=== PATIENT | male | born 1945 | race Caucasian/White ===

== ENCOUNTER 2021-04-22 16:03 | Inpatient (IN) | payer OTHER ==
[~2021-04-22] VITALS: Ht 182.9 cm; Wt 82.6 kg
--- NOTE | 2021-04-22 16:03 | NUR ---
PT IV LINE ESTABLISHED BLOOD DRAWN AND SENT TO LAB.
--- NOTE | 2021-04-22 16:03 | NUR ---
PT BIBRA 84 FROM HOME C/O ALTERED MENTAL STATUS LAST KNOWN WELL WAS THURSDAY. PT IS AAOX2, NOT IN RESPIRATORY DISTRESS, HOOKED TO RUSSET REPAIRER, KEPT RESTED AND COMFORTABLE. WILL CONTINUE TO MONITOR.
--- NOTE | 2021-04-22 16:09 | NUR ---
AT BEDSIDE FOR EVAL.
[2021-04-22] MEDS ORDERED: IV NS 0.9% 500 ML BAG IV ONE (16:30)
--- NOTE | 2021-04-22 16:30 | NUR ---
covid swab done and sent to the lab
[2021-04-22 16:34] LABS: BASOPHILS # (AUTO) 0.1 K/uL (0.0-0.2); BASOPHILS % (AUTO) 0.3 % (0.0-2.0); EOSINOPHILS % (AUTO) 0.4 % (0.0-6.0); HEMATOCRIT 43 % (39-51); HEMOGLOBIN 14.1 g/dL (13.5-17.5); LYMPHOCYTES # (AUTO) 1.8 K/uL (0.8-4.8); LYMPHOCYTES % (AUTO) 11.2 % (20.0-44.0); MEAN CORPUSCULAR HGB CONC 33 g/dl (31.0-36.0); MEAN CORPUSCULAR VOLUME 95 fL (80-96); MONOCYTES # (AUTO) 1.6 K/uL (0.1-1.30); MONOCYTES % (AUTO) 9.8 % (2.0-12.0); NEUTROPHILS # (AUTO) 12.4 K/uL (1.8-8.9); NEUTROPHILS % (AUTO) 78.3 % (43.0-81.0); PLATELET COUNT (AUTO) 277 K/uL (150-450); RED BLOOD CELL COUNT(AUTO) 4.55 MIL/uL (4.5-6.0); WHITE BLOOD COUNT (AUTO) 15.9 K/uL (4.3-11.0)
[2021-04-22 17:14] LABS: ALANINE AMINOTRANSFERASE 123 U/L (12-78); ALBUMIN 3.7 g/dL (3.4-5.0); ALKALINE PHOSPHATASE 85 U/L (46-116); ASPARTATE AMINOTRANSFERASE 229 U/L (15-37); BILIRUBIN,DIRECT 0.3 mg/dL (0.0-0.2); BILIRUBIN,TOTAL 1.2 mg/dL (0.2-1.0); CALCIUM, SERUM 8.9 mg/dL (8.5-10.1); CARBON DIOXIDE 26 mmol/L (21-32); CHLORIDE 95 mmol/L (98-107); CREATININE 4.2 mg/dL (0.6-1.3); GLUCOSE 120 mg/dL (74-106); POTASSIUM 3.5 mmol/L (3.5-5.1); SODIUM SERUM 134 mmol/L (136-145); TOTAL PROTEIN, SERUM 7.3 g/dL (6.4-8.2)
[2021-04-22 17:15] LABS: UREA NITROGEN, BLOOD 88 mg/dL (7-18)
[2021-04-22] MEDS ORDERED: IV NS 0.9% 1,000 ML BAG IV ONE (17:30)
[2021-04-22] MEDS ORDERED: CEFEPIME 1 GM in IV D5W 50 ML IV ONE (17:30)
[2021-04-22] MEDS ORDERED: VANCOMYCIN 1 GM in IV D5W 250 ML IV ONE (17:30)
[2021-04-22] MEDS ORDERED: Z GUARD REMEDY 2 OZ OINT TP PRN (18:30)
[2021-04-22] MEDS ORDERED: ACETAMINOPHEN 325 MG TABLET PO PRN (18:30)
[2021-04-22] MEDS ORDERED: ONDANSETRON HCL/PF 4 MG/2 ML VIAL IVP PRN (18:30)
[2021-04-22] MEDS ORDERED: IV NS 0.9% 1,000 ML IV PRN (18:30)
--- NOTE | 2021-04-22 18:58 | NUR ---
NURSING SUP GAVE TELE BED 308-1. PLEASE CALL AFTER SHIFT CHANGE FOR REPORT.
--- NOTE | 2021-04-22 19:26 | NUR ---
RERORT GIVEN TO NURSE HOLDER
[2021-04-22] MEDS ORDERED: CEFTRIAXONE 1 G in IV D5W 50 ML IV SCH (20:00)
[2021-04-22 20:11] LABS: CHOLESTEROL 121 mg/dL (<200); HDL CHOLESTEROL 31 mg/dL (40-60); LDL 65 mg/dL (0-99); TRIGLYCERIDES 169 mg/dL (30-150)
[2021-04-22] MEDS ORDERED: CEFTRIAXONE 1GM BAG (ER ONLY) 50 ML IV ONE (20:17)
[2021-04-22] MEDS ORDERED: ACETAMINOPHEN 325 MG TABLET ONE (20:18)
--- NOTE | 2021-04-22 20:27 | NUR ---
DIRECTIONAL DRILL OPERATOR AT BEDSIDE
--- NOTE | 2021-04-22 20:35 | NUR ---
AWAITING CALL BACK FROM 3W TO GIVE REPORT
--- NOTE | 2021-04-22 22:17 | NUR ---
INSERTED F/C 16 FR
--- NOTE | 2021-04-22 22:23 | NUR ---
REPORT GIVEN TO CHEYENNE 3W FOR STEPHANIE
--- NOTE | 2021-04-22 22:50 | NUR ---
PT TRANSFERRED TO ROOM 308-2 VIA ACLS PROTOCOL
[2021-04-22] MEDS ORDERED: hydrALAZINE HCL IV 20 MG VIAL IV PRN (23:30)
[2021-04-22] MEDS ORDERED: LABETALOL 20 MG/4 ML VIAL IV PRN (23:30)
--- NOTE | 2021-04-22 23:40 | NUR ---
RN ADMITTING NOTES PT ARRIVED TO UNIT AT 2330 ACCOMPANIED BY RN AND EMT. PT A/O X 3 WITH SOME FORGETFULNESS. PT IS IS A TELE PT 75 YEAR OLD MALE. PT UNABLE TO RECALL ANY ALLERGIES AT THIS TIME. PT ADMITTING DX IS ACUTE METABOLIC ENCEPHALOPATHY. IV SITE ON THE RIGHT WRIST 18 G LAC 18G PATENT SALINE FLUSHED. PT HAS PAIN AT THIS TIME LOWER ABDOMINAL STATED" I FEEL LIKE I NEED TO PEE BUT I CANT" RN NOTED NO OUTPUT IN THE PALENCIA CATH CATH REINSERTED PT IS NOW HAVING OUTPUT PT IN RELIEVED. NO RESPIRATORY DISTRESS ON ROOM AIR TOLERATING WELL. PTS ONLY PASS MEDICATION HISTORY RECALLED IS DIABETES PT DOES NOT REMEMBER NAME OF MEDICATION HE TAKES AT HOME. PT STATED HE LIVES AT HOME WITH GIRLFRIEND. PT NOTED WITH SCABS ON HIS BODY PHOTOS TAKEN. BED ALARM ON AT THIS ITME. PT INSTRUCTED TO USE CALLIGHT FOR ASSISTANCE PLACED WITHIN REACH. HOB ELEVATED. BILATERAL SIDE RAILS UP WILL OCNTINUE TO MONITOR.
[2021-04-23] VITALS: BP 142/86
[2021-04-23] MEDS ORDERED: DEXTROSE 50%-WATER 50 ML DISP.SYRIN IV PRN ×2 (02:00→13:30)
[2021-04-23] MEDS ORDERED: INSULIN REGULAR, HUMAN 100 UNIT/ML 3 ML VIAL SQ PRN (02:00)
[2021-04-23] MEDS: BLOOD SUGAR DIAGNOSTIC 1 EACH STRIP IN SCH ×3 (02:17→13:02)
[2021-04-23 04:00] VITALS: BP_SYST 159; BP_DIAS 66; BP_DIAS 99
[2021-04-23 05:29] LABS: BILIRUBIN,URINE NEGATIVE (NEGATIVE); COLOR,URINE RED (YELLOW); LEUKOCYTE ESTERASE ,URINE NEGATIVE (NEGATIVE); NITRITE, URINE NEGATIVE (NEGATIVE); PROTEIN,URINE TRACE mg/dl (NEGATIVE); UGLUCOSE NEGATIVE (NEGATIVE); UROBILINOGEN,URINE 0.2 EU/dL (0.2)
[2021-04-23 05:47] LABS: CREATININE, URINE 16.8 MG/DL (30.0-125.0)
[2021-04-23 06:11] LABS: BACTERIA,URINE Few /HPF (None Seen); RBC,URINE 51-80 /HPF (0-2); SQUAMOUS EPITHELIAL CELL,UR Few /HPF (None Seen)
[2021-04-23 06:29] LABS: BASOPHILS % (AUTO) 0.1 % (0.0-2.0); EOSINOPHILS % (AUTO) 0.8 % (0.0-6.0); HEMATOCRIT 38 % (39-51); HEMOGLOBIN 12.9 g/dL (13.5-17.5); LYMPHOCYTES # (AUTO) 0.8 K/uL (0.8-4.8); LYMPHOCYTES % (AUTO) 8.5 % (20.0-44.0); MEAN CORPUSCULAR HGB CONC 34 g/dl (31.0-36.0); MEAN CORPUSCULAR VOLUME 94 fL (80-96); MONOCYTES # (AUTO) 0.8 K/uL (0.1-1.30); MONOCYTES % (AUTO) 8.8 % (2.0-12.0); NEUTROPHILS # (AUTO) 7.7 K/uL (1.8-8.9); NEUTROPHILS % (AUTO) 81.8 % (43.0-81.0); PLATELET COUNT (AUTO) 217 K/uL (150-450); RED BLOOD CELL COUNT(AUTO) 4.09 MIL/uL (4.5-6.0); WHITE BLOOD COUNT (AUTO) 9.4 K/uL (4.3-11.0)
--- NOTE | 2021-04-23 06:46 | NUR ---
CLOSING RN NOTES PT A/O X 3 WITH SOME FORGETFULNESS. PT IS IS A TELE IV SITE ON THE RIGHT WRIST 18 G LAC 18G PATENT SALINE FLUSHED. NO RESPIRATORY DISTRESS ON ROOM AIR TOLERATING WELL. . PT INSTRUCTED TO USE CALL LIGHT FOR ASSISTANCE PLACED WITHIN REACH. HOB ELEVATED. BILATERAL SIDE RAILS UP WILL ENDORSE CARE TO DAY SHIFT NURSE.
[2021-04-23 07:11] LABS: ALANINE AMINOTRANSFERASE 108 U/L (12-78); ALKALINE PHOSPHATASE 70 U/L (46-116); ASPARTATE AMINOTRANSFERASE 173 U/L (15-37); BILIRUBIN,TOTAL 0.8 mg/dL (0.2-1.0); CALCIUM, SERUM 7.6 mg/dL (8.5-10.1); CARBON DIOXIDE 23 mmol/L (21-32); CHLORIDE 107 mmol/L (98-107); CREATININE 2.7 mg/dL (0.6-1.3); GLUCOSE 104 mg/dL (74-106); MAGNESIUM 2.4 mg/dL (1.8-2.4); PHOSPHORUS 3.4 mg/dL (2.5-4.9); POTASSIUM 2.9 mmol/L (3.5-5.1); SODIUM SERUM 143 mmol/L (136-145); TOTAL PROTEIN, SERUM 6.1 g/dL (6.4-8.2); UREA NITROGEN, BLOOD 63 mg/dL (7-18)
--- NOTE | 2021-04-23 07:15 | NUR ---
HOTEL OPERATION MANAGER OPENING NOTES RECEIVED PATIENT A/O X 2-3 BUT FORGETFUL. PATIENT ON ROOM AIR WITH OXYGEN SATURATION AT 96%. PATIENT WITH IV ACCESS ON RIGHT AC G18 AND LEFT WRIST G18 WITH ONGOING NS AT 75ML/HR. PATIENT WITH RIB FRACTURES. MONITORED FOR PAIN MANAGEMENT. NO COMPLAINT AT THIS TIME. WITH PALENCIA CATHETER TO URINE BAG, WITH LIGHT YELLOW OUTPUT. SAFETY MEASURES ENSURED WITH BED ON LOWEST AND LOCKED POSITION. SIDE RAILS UP FOR SAFETY. CALL LIGHT AND TABLE WITHIN REACH AT ALL TIMES. WILL CONTINUE TO MONITOR PATIENT.
[2021-04-23 08:00] VITALS: BP 166/86
[2021-04-23 08:07] LABS: POTASSIUM 3.1 mmol/L (3.5-5.1)
--- NOTE | 2021-04-23 08:20 | NUR ---
DENTAL AMALGAM PROCESSOR NOTE PATIENT SEEN BY DR. LEAVITT WITH ORDERS READ BACK AND VERIFIED. WILL CONTINUE TO MONITOR PATIENT.
[2021-04-23] MEDS ORDERED: HYDROCODONE/APAP 5/325MG TABLET PO PRN (09:30)
[2021-04-23] MEDS ORDERED: BISA5TAB10 PO (10:45)
[2021-04-23] MEDS ORDERED: GABA-532 PO (10:45)
[2021-04-23] MEDS ORDERED: ACET-2605 PO (10:45)
[2021-04-23] MEDS ORDERED: MAG30ORA PO (10:45)
[2021-04-23] MEDS ORDERED: TRAZ-182 PO (10:45)
[2021-04-23] MEDS ORDERED: ATOR10TA PO (10:45)
[2021-04-23] MEDS ORDERED: ERGO500093 PO (10:45)
[2021-04-23] MEDS ORDERED: OMEP40CA21 PO (10:45)
[2021-04-23] MEDS ORDERED: LOSA100T31 PO (10:45)
[2021-04-23] MEDS ORDERED: PARO10TA86 PO (10:45)
[2021-04-23] MEDS ORDERED: BENA20TA9 PO (10:45)
[2021-04-23] MEDS ORDERED: LEVO25TA9 PO (10:45)
[2021-04-23] MEDS ORDERED: OLOP2.5D12 EACHEYE (10:45)
[2021-04-23] MEDS ORDERED: CLON0.2T PO (10:45)
[2021-04-23] MEDS ORDERED: AMLO-212 PO (10:45)
[2021-04-23] MEDS ORDERED: CYAN-51 PO (10:45)
[2021-04-23] MEDS ORDERED: ALEN70TA3 PO (10:45)
[2021-04-23] MEDS ORDERED: SUCR1TAB31 PO (10:45)
[2021-04-23] MEDS ORDERED: DONE5TAB34 PO (10:45)
[2021-04-23] MEDS ORDERED: METF-440 PO (10:48)
[2021-04-23] MEDS ORDERED: ALLO300T2 PO (10:48)
[2021-04-23] MEDS: IV NS 0.9% 1,000 ML IV PRN ×2 (11:26→21:34)
[2021-04-23] MEDS: HYDROCODONE/APAP 5/325MG TABLET PO PRN ×4 (11:28→21:45)
[2021-04-23 12:00] VITALS: BP 166/96
[2021-04-23] MEDS: POTASSIUM CL. PREMIX PERIPHER. 50 ML IV SCH ×2 (13:08→14:17)
[2021-04-23] MEDS ORDERED: PIPERACILLIN /TAZOBACTAM 2.25 G in IV D5W 50 ML IV SCH (13:30)
[2021-04-23] MEDS ORDERED: *INSULIN REGULAR(HUMULIN R)HUM 100 UNIT/ML VIAL SQ PRN (13:30)
[2021-04-23] MEDS: AMLODIPINE BESYLATE 5 MG TABLET PO SCH (14:16)
[2021-04-23] MEDS: CEFEPIME 1 GM in IV D5W 50 ML IV SCH (15:07)
[2021-04-23 16:00] VITALS: BP 164/84
[2021-04-23] MEDS: BLOOD SUGAR DIAGNOSTIC 1 EACH STRIP VI SCH ×2 (17:06→21:41)
--- NOTE | 2021-04-23 19:00 | NUR ---
received in bed hinds draing speech clear good eye contact c/o of left side and back pain iv infusing
--- NOTE | 2021-04-23 19:00 | NUR ---
FUNERAL PRE ARRANGEMENT COUNSELOR CLOSING NOTES PATIENT A/O X 2-3 BUT FORGETFUL. PATIENT ON ROOM AIR WITH OXYGEN SATURATION AT 96%. PATIENT WITH IV ACCESS ON RIGHT AC G18 AND LEFT WRIST G18 WITH ONGOING NS AT 75ML/HR. PATIENT WITH RIB FRACTURES. MONITORED FOR PAIN MANAGEMENT. NO COMPLAINT AT THIS TIME. WITH PALENCIA CATHETER TO URINE BAG, WITH LIGHT YELLOW OUTPUT. SAFETY MEASURES ENSURED WITH BED ON LOWEST AND LOCKED POSITION. SIDE RAILS UP FOR SAFETY. CALL LIGHT AND TABLE WITHIN REACH AT ALL TIMES. ENDORSED PATIENT TO NEXT SHIFT FOR CONTINUITY OF CARE.
[2021-04-23 20:54] VITALS: BP 165/95
[2021-04-23] MEDS: INSULIN REGULAR, HUMAN 100 UNIT/ML 3 ML VIAL SQ PRN (21:49)
[2021-04-24] MEDS: CEFEPIME 1 GM in IV D5W 50 ML IV SCH ×2 (02:13→15:50)
[2021-04-24] MEDS: HYDROCODONE/APAP 5/325MG TABLET PO PRN ×2 (03:25→16:27)
[2021-04-24 04:00] VITALS: BP 168/95
--- NOTE | 2021-04-24 04:50 | NUR ---
Closing Notes: medicated X2 with Nelson tablets for left sided pain. 1 tablet not effective for the pain relief. good about turning and being reposition noted he becomes frustrated when he forgets what he wanted to ask. vital signs stable this 12 hours.
[2021-04-24] MEDS: BLOOD SUGAR DIAGNOSTIC 1 EACH STRIP VI SCH ×3 (06:19→17:02)
[2021-04-24] MEDS: IV NS 0.9% 1,000 ML IV PRN (06:21)
[2021-04-24] MEDS: INSULIN REGULAR, HUMAN 100 UNIT/ML 3 ML VIAL SQ PRN (06:25)
[2021-04-24 06:48] LABS: BASOPHILS % (AUTO) 0.1 % (0.0-2.0); EOSINOPHILS % (AUTO) 1.1 % (0.0-6.0); HEMATOCRIT 37 % (39-51); HEMOGLOBIN 12.6 g/dL (13.5-17.5); LYMPHOCYTES # (AUTO) 1.3 K/uL (0.8-4.8); LYMPHOCYTES % (AUTO) 10.2 % (20.0-44.0); MEAN CORPUSCULAR HGB CONC 34 g/dl (31.0-36.0); MEAN CORPUSCULAR VOLUME 93 fL (80-96); NEUTROPHILS % (AUTO) 80.6 % (43.0-81.0); PLATELET COUNT (AUTO) 240 K/uL (150-450); RED BLOOD CELL COUNT(AUTO) 4.01 MIL/uL (4.5-6.0); WHITE BLOOD COUNT (AUTO) 12.5 K/uL (4.3-11.0)
[2021-04-24 06:55] LABS: ALANINE AMINOTRANSFERASE 103 U/L (12-78); ALBUMIN 2.9 g/dL (3.4-5.0); ALKALINE PHOSPHATASE 70 U/L (46-116); ASPARTATE AMINOTRANSFERASE 109 U/L (15-37); BILIRUBIN,DIRECT 0.2 mg/dL (0.0-0.2); BILIRUBIN,TOTAL 0.7 mg/dL (0.2-1.0); CARBON DIOXIDE 26 mmol/L (21-32); CHLORIDE 105 mmol/L (98-107); CREATININE 1.7 mg/dL (0.6-1.3); GLUCOSE 131 mg/dL (74-106); POTASSIUM 3.2 mmol/L (3.5-5.1); SODIUM SERUM 142 mmol/L (136-145); TOTAL PROTEIN, SERUM 5.9 g/dL (6.4-8.2); UREA NITROGEN, BLOOD 38 mg/dL (7-18)
[2021-04-24 07:15] LABS: CREATINE KINASE, TOTAL 2319 U/L (39-308)
[2021-04-24 08:00] VITALS: BP 141/87
[2021-04-24] MEDS: AMLODIPINE BESYLATE 5 MG TABLET PO SCH (09:41)
[2021-04-24] MEDS: POTASSIUM CHLORIDE 20 MEQ TAB.PRT.SR PO SCH ×3 (12:05→13:51)
[2021-04-24] MEDS ORDERED: LEVO500T90 PO (12:09)
[2021-04-24] MEDS ORDERED: POTASSIUM CHLORIDE 20 MEQ TAB.PRT.SR PO ONE (12:30)
--- NOTE | 2021-04-24 13:32 | NUR ---
MED HELD INSULIN. BS 132. PT REFUSED LUNCH
[2021-04-24 17:00] VITALS: BP 163/100
[2021-04-24] MEDS ORDERED: LABETALOL HCL IV 100MG VIAL IV PRN (18:00)
--- NOTE | 2021-04-24 19:10 | NUR ---
PT TRANSFERRED TO SNF DISCHARGE INSTRUCTIONS GIVEN ORDERED. ALL QUESTIONS AND CONCERNS ADDRESSED. PATIENT VERBALIZED UNDERSTANDING. IV REMOVED WITH CATHETER INTACT, PRESSURE DRESSING APPLIED. PALENCIA CATHETER REMOVED. MEDICATION RECONCILIATION FORM COMPLETED. COPY GIVEN TO PATIENT. REPORT GIVEN TO BRITTANY AT 4 SEASONS. PATIENT TRANSPORTED WITH ALL PERSONAL BELONGINGS BY AMBULANCE. NO DISTRESS NOTED. AT TIME OF DEPARTURE.
== END 2021-04-24 19:20 | DRG 682 ==
LOC: ER 16:08 → TELE 19:20 → MED 04-24 12:37
PROVIDERS: ADMIT Internal Medicine; ATTEND Internal Medicine
DX: N17.0 Acute kidney failure with tubular necrosis (principal); J69.0 Pneumonitis due to inhalation of food and vomit; I21.A1 Myocardial infarction type 2; G93.41 Metabolic encephalopathy; S22.42XA Multiple fractures of ribs, left side, initial encounter for closed fracture; E87.1 Hypo-osmolality and hyponatremia; E44.1 Mild protein-calorie malnutrition; M62.82 Rhabdomyolysis; I12.9 Hypertensive chronic kidney disease with stage 1 through stage 4 chronic kidney disease, or unspecified chronic kidney disease; N18.9 Chronic kidney disease, unspecified; E03.9 Hypothyroidism, unspecified; E86.0 Dehydration; E86.1 Hypovolemia; E87.6 Hypokalemia; E11.22 Type 2 diabetes mellitus with diabetic chronic kidney disease; F03.90 Unspecified dementia, unspecified severity, without behavioral disturbance, psychotic disturbance, mood disturbance, and anxiety; N40.0 Benign prostatic hyperplasia without lower urinary tract symptoms; W19.XXXA Unspecified fall, initial encounter; R74.01 Elevation of levels of liver transaminase levels; X58.XXXA Exposure to other specified factors, initial encounter; Y93.9 Activity, unspecified; Y92.009 Unspecified place in unspecified non-institutional (private) residence as the place of occurrence of the external cause; Z20.822 Contact with and (suspected) exposure to COVID-19; E88.09 Other disorders of plasma-protein metabolism, not elsewhere classified; Z68.24 Body mass index [BMI] 24.0-24.9, adult; Z79.84 Long term (current) use of oral hypoglycemic drugs
CPT/HCPCS: 36415; 70450-TC; 71045-TC; 71250-TC; 80048-TC; 80053-TC; 80061-TC; 80076-TC; 81001; 82550-TC; 82553; 82570-TC; 82962-TC; 83605-TC; 83735-TC; 84100-TC; 84132-TC; 84300-TC; 84484-TC; 85025-TC; 85730-TC; 87040-TC; 87081-TC; 87086-TC; 93307-TC; 93880-TC; C9803; G0378; J0360; J0692; J0696; J1815; J3370; J3480; J3490; J7030; J7040; J7060

== ENCOUNTER 2021-05-06 16:12 | Emergency (ER) | payer MEDICARE, OTHER ==
[~2021-05-06] VITALS: Ht 182.9 cm; Wt 81.6 kg
[~2021-05-06 16:12] MED LIST: ACET-2605 PO; ALEN70TA3 PO; ALLO300T2 PO; AMLO-212 PO; ATOR10TA PO; BISA5TAB10 PO; CLON0.2T PO; CYAN-51 PO; DONE5TAB34 PO; ERGO500093 PO; GABA-532 PO; LEVO25TA9 PO; LEVO500T90 PO; MAG30ORA PO; METF-440 PO; OLOP2.5D12 EACHEYE; OMEP40CA21 PO; PARO10TA86 PO; SUCR1TAB31 PO; TRAZ-182 PO
[2021-05-06 16:59] LABS: BASOPHILS # (AUTO) 0.1 K/uL (0.0-0.2); BASOPHILS % (AUTO) 0.6 % (0.0-2.0); EOSINOPHILS % (AUTO) 1.2 % (0.0-6.0); HEMATOCRIT 40 % (39-51); LYMPHOCYTES # (AUTO) 1.5 K/uL (0.8-4.8); MEAN CORPUSCULAR HGB CONC 33 g/dl (31.0-36.0); MEAN CORPUSCULAR VOLUME 95 fL (80-96); MONOCYTES # (AUTO) 0.8 K/uL (0.1-1.30); MONOCYTES % (AUTO) 6.7 % (2.0-12.0); NEUTROPHILS # (AUTO) 8.7 K/uL (1.8-8.9); NEUTROPHILS % (AUTO) 78.5 % (43.0-81.0); PLATELET COUNT (AUTO) 349 K/uL (150-450); RED BLOOD CELL COUNT(AUTO) 4.24 MIL/uL (4.5-6.0); WHITE BLOOD COUNT (AUTO) 11.2 K/uL (4.3-11.0)
[2021-05-06 17:21] LABS: CALCIUM, SERUM 9.3 mg/dL (8.5-10.1); CARBON DIOXIDE 30 mmol/L (21-32); CHLORIDE 106 mmol/L (98-107); CREATININE 1.5 mg/dL (0.6-1.3); GLUCOSE 131 mg/dL (74-106); POTASSIUM 4.2 mmol/L (3.5-5.1); SODIUM SERUM 143 mmol/L (136-145); UREA NITROGEN, BLOOD 18 mg/dL (7-18)
[2021-05-06 17:35] LABS: ALANINE AMINOTRANSFERASE 47 U/L (12-78); ALBUMIN 3.3 g/dL (3.4-5.0); ALCOHOL, BLOOD < 3 mg/dL (0-0); ALKALINE PHOSPHATASE 129 U/L (46-116); ASPARTATE AMINOTRANSFERASE 27 U/L (15-37); BILIRUBIN,DIRECT 0.1 mg/dL (0.0-0.2); BILIRUBIN,TOTAL 0.3 mg/dL (0.2-1.0); TOTAL PROTEIN, SERUM 6.8 g/dL (6.4-8.2)
[2021-05-06] MEDS ORDERED: AZITHROMYCIN 250 MG TABLET PO ONE (18:30)
[2021-05-06] MEDS ORDERED: CEFTRIAXONE 1GM BAG (ER ONLY) 1 GM/50 ML PIGGYBACK IV ONE (18:30)
[2021-05-06 18:58] LABS: THYROID STIMULATING HORMONE 1.491 uIU/mL (0.358-3.74)
[2021-05-06] MEDS ORDERED: AZITHROMYCIN 250 MG TABLET ONE (18:58)
[2021-05-06] MEDS ORDERED: CEFTRIAXONE 1GM BAG (ER ONLY) 50 ML IV ONE (18:58)
--- NOTE | 2021-05-06 19:05 | NUR ---
Pt bibra c/o gen weakness x5 days and glf. Pt aaox4 breathing evenly and unlabored. Per pt, he fell "various times and went to another ER and was told i have rib fractures" pt attached to monitor and pox. Pt given blanket and call light within reach.
[2021-05-06 19:18] LABS: BILIRUBIN,URINE Negative (NEGATIVE); COLOR,URINE YELLOW (YELLOW); LEUKOCYTE ESTERASE ,URINE Negative (NEGATIVE); NITRITE, URINE Negative (NEGATIVE); PH,URINE 8.5 (5.0-8.0); PROTEIN,URINE 30 mg/dl (NEGATIVE); UGLUCOSE Negative (NEGATIVE); UROBILINOGEN,URINE 0.2 EU/dL (0.2)
[2021-05-06 19:24] LABS: BACTERIA,URINE Rare /HPF (None Seen); RBC,URINE NONE SEEN /HPF (0-2); SQUAMOUS EPITHELIAL CELL,UR Few /HPF (None Seen); WBC,URINE NONE SEEN /HPF (0-3)
--- NOTE | 2021-05-06 20:33 | NUR ---
FAXED CLINICALS TO [facility]
--- NOTE | 2021-05-06 21:17 | NUR ---
Aj georges in [place] - 05/06/21 at 2119 by KELLIE [facility] [id number] FOR REPORT
--- NOTE | 2021-05-06 21:23 | NUR ---
PER BOBBY AT [facility] PT WILL GO TO [facility] ON [address] [facility] [address] # FOR REPORT: [phone] ACCEPTING MD: DR HASKINS AUTH NUMBER FOR TRANSPORTATION: [id number]
--- NOTE | 2021-05-06 21:28 | NUR ---
PER NILSON AT [facility] ETA FOR TRANSPORT IS 0100.
--- NOTE | 2021-05-06 23:18 | NUR ---
gave report to Wilton at [facility]
--- NOTE | 2021-05-06 23:29 | NUR ---
PT PRIMARY CARE CONTACT NUMBER IS [id number]
[2021-05-07] MEDS ORDERED: ONDANSETRON HCL/PF 4 MG/2 ML VIAL ONE (00:44)
[2021-05-07] MEDS ORDERED: MORPHINE SULFATE INJ 2 MG/ML DISP.SYRIN ONE (00:45)
[2021-05-07] MEDS ORDERED: MORPHINE SULFATE INJ 2 MG/ML DISP.SYRIN IV ONE (01:00)
[2021-05-07] MEDS ORDERED: ONDANSETRON HCL/PF - ER 4 MG/2 ML VIAL IV ONE (01:00)
[2021-05-07 01:32] VITALS: BP 151/91
--- NOTE | 2021-05-07 01:32 | NUR ---
gave report to ems
== END 2021-05-07 01:32 | disposition short-term general hospital (02) ==
LOC: ER 16:19
DX: R53.1 Weakness (principal); J18.9 Pneumonia, unspecified organism; S22.42XD Multiple fractures of ribs, left side, subsequent encounter for fracture with routine healing; W19.XXXD Unspecified fall, subsequent encounter; Z90.49 Acquired absence of other specified parts of digestive tract; K44.9 Diaphragmatic hernia without obstruction or gangrene; R91.8 Other nonspecific abnormal finding of lung field; R94.31 Abnormal electrocardiogram [ECG] [EKG]; E11.9 Type 2 diabetes mellitus without complications; Z20.822 Contact with and (suspected) exposure to COVID-19; I45.10 Unspecified right bundle-branch block; Z88.0 Allergy status to penicillin; I11.9 Hypertensive heart disease without heart failure; Z79.899 Other long term (current) drug therapy
CPT/HCPCS: 36415; 70450; 71250; 72125; 72131; 80048; 80076; 80307; 80320; 81001; 82550; 83605; 84443; 84484; 85025; 87040 ×2; 87086; 87426; 93005; 96365; 96375; 99285; J0696; J2270; J2405; C9803; G0480